=== PATIENT | male | born 1975 | race Caucasian/White ===

== ENCOUNTER 2019-11-17 09:27 | Emergency (ER) | payer OTHER ==
[~2019-11-17 09:27] MED LIST: Sterile Water Irrigation 250 ML BOT ONE
[2019-11-17] MEDS ORDERED: Bacitracin 1 PK ONE (09:50)
[2019-11-17] MEDS ORDERED: Adacel (T-DAP) 0.5 ML SYRINGE ONE (09:50)
[2019-11-17] MEDS ORDERED: Lidocaine 1% 20 ML MDV ONE (09:50)
[2019-11-17] MEDS ORDERED: Cephalexin 500 MG CAP ONE (10:21)
[2019-11-17] MEDS ORDERED: Ibuprofen 800 MG TAB ONE (10:21)
[2019-11-17] MEDS ORDERED: HYDROcodone/Acetaminophen 5/325 mg Tablet ONE (10:21)
== END 2019-11-17 10:30 | disposition home or self-care (01) ==
LOC: MADERS 09:27
DX: S61.210A Laceration without foreign body of right index finger without damage to nail, initial encounter (principal); Z23 Encounter for immunization; I10 Essential (primary) hypertension; Z79.899 Other long term (current) drug therapy; W26.8XXA Contact with other sharp object(s), not elsewhere classified, initial encounter
CPT/HCPCS: 12002; 90471; 90715; J2001

== ENCOUNTER 2025-05-17 13:38 | Emergency (ER) | payer OTHER | END 2025-05-17 14:35 | disposition home or self-care (01) | LOC: MADERS 13:38 | DX: M17.11 Unilateral primary osteoarthritis, right knee (principal); I48.91 Unspecified atrial fibrillation; I10 Essential (primary) hypertension; Z79.899 Other long term (current) drug therapy; Z79.01 Long term (current) use of anticoagulants | CPT/HCPCS: 99283 ==